=== PATIENT | male | born 1950 | race Caucasian/White ===

== ENCOUNTER 2020-03-29 07:34 | Day surgery (SDC) | payer MEDICARE, MEDICAID ==
[2020-03-22 11:36] LABS: PRE OP PROTIME 10.7 SECONDS (9.0-12.0)
[2020-03-22 11:40] LABS: ALBUMIN 3.9 G/DL (3.4-5.0); ALBUMIN/GLOBULIN RATIO 1.1 (1.1-1.5); ALKALINE PHOSPHATASE 87 IU/L (46-116); BASOPHILS % (AUTO) 0.6 % (0-1); BLOOD UREA NITROGEN 12 MG/DL (7-18); BUN/CREATININE RATIO 12.1 (5.4-32.0); CALCIUM 8.6 MG/DL (8.5-10.1); CHLORIDE 105 MMOL/L (99-107); CREATININE 0.99 MG/DL (0.60-1.10); EOSINOPHILS # (AUTO) 0.1 X10'3 (0-0.9); LYMPHOCYTES # (AUTO) 1.8 X10'3 (1.1-4.8); LYMPHOCYTES % (AUTO) 33.7 % (21-51); MEAN CORPUSCULAR HEMOGLOBIN 34.2 PG (27.0-31.0); MEAN CORPUSCULAR HGB CONC 34.8 g/dL (33.0-36.5); MEAN CORPUSCULAR VOLUME 98.2 FL (78-98); MEAN PLATELET VOLUME 7.9 FL (7.4-10.4); MONOCYTES # (AUTO) 0.5 X10'3 (0-0.9); MONOCYTES % (AUTO) 10.5 % (2-12); NEUTROPHILS # (AUTO) 2.8 X10'3 (1.8-7.7); NEUTROPHILS % (AUTO) 54.2 % (42-75); PRE OP ALT 27 U/L (30-65); PRE OP ANION GAP 8 (8-16); PRE OP AST 18 U/L (10-37); PRE OP BILIRUB, TOTAL 0.6 MG/DL (0.0-1.0); PRE OP GLUCOSE 120 MG/DL (70-104); PRE OP HEMATOCRIT 45.6 % (42.0-52.0); PRE OP HEMOGLOBIN 15.9 g/dL (14.0-17.9); PRE OP PLATELET COUNT 127 X10'3 (140-440); PRE OP SODIUM 140 MMOL/L (135-145); RED BLOOD COUNT 4.65 X10'6 (4.70-6.10); TOTAL CARBON DIOXIDE 27.5 MMOL/L (24-32); TOTAL PROTEIN 7.5 G/DL (6.4-8.2); eGFR 75 ML/MIN
[2020-03-29] VITALS (8 sets, daily range): BP systolic 116–129; BP diastolic 59–78
[~2020-03-29] VITALS: Ht 172.7 cm; Wt 86.0 kg
[~2020-03-29 07:34] MED LIST: ALBU18HF2 IH; BACL10TA2 PO; DIAZ10TA5 PO; DIPH25CA46 PO; DOCUMENT DATE & TIME OF BETA-BLOCKER PO ONE; ESOM40CA54 PO; FLO0.4C PO; FLUT16SP26 BOTHNARES; GABA600T13 PO; ISOS60TA4 PO; LIDOcaine 1% W/epiNEPHrine 1:100,000 20ml vial ONE; LORA10TA7 PO; LOSA25TA41 PO; METO-411 PO; MSC30T PO; NITR0.4T51 SL; OXYC-658 PO; QUET100T33 PO; ROPI1TAB6 PO; SIMV-45 PO; TEST200V10 IM; VALB80CA PO; cefTAZidime 1gm inj ONE; cocaine 4% topical solution 4ml bottle ONE; famotidine 20mg tablet PO ONE; methylPREDNISolone acetate 80mg/ml inj**IM only ONE; mupirocin 2% ointment 22GM ONE; oxymetazoline 15 ML nasal spray NS ONE; ringers solution, lacted 1,000 ML IV SCH
[2020-03-29] MEDS ORDERED: LIDOcaine 1% W/epiNEPHrine 1:100,000 20ml vial ONE (07:35)
[2020-03-29] MEDS ORDERED: ondansetron/PF 4mg/2ml inj IV PRN (09:00)
[2020-03-29] MEDS ORDERED: ringers solution, lacted 1,000 ML IV SCH (09:00)
[2020-03-29] MEDS ORDERED: morphine 4 MG/ML inj SYRINge IV PRN (09:00)
[2020-03-29] MEDS ORDERED: fentaNYL/PF 50MCG/1 ML 2ML syringe IV PRN ×2 (09:00)
[2020-03-29] MEDS ORDERED: labetalol 20mg/4ml (5mg/ml) syringe IV PRN (09:00)
[2020-03-29] MEDS ORDERED: hydrALAZINE 20mg/ml inj. IV PRN (09:00)
[2020-03-29] MEDS ORDERED: morphine 2 MG/ML inj. syringe IV PRN (09:00)
[2020-03-29] MEDS ORDERED: fentaNYL/PF 50MCG/1 ML 2ML syringe ONE (09:29)
[2020-03-29] MEDS ORDERED: midazolam 2 mg/2 ml injection ONE (09:30)
[2020-03-29] MEDS ORDERED: dexamethasone sod phosphate 4mg/ml inj. ONE (09:32)
[2020-03-29] MEDS ORDERED: LIDOcaine 2% (20mg/ml) 5ml vial ONE (09:32)
[2020-03-29] MEDS ORDERED: ondansetron/PF 4mg/2ml inj ONE (09:32)
[2020-03-29] MEDS ORDERED: propofol inj 20 ML IV ONE (09:32)
[2020-03-29] MEDS ORDERED: sevoflurane 250ml liquid IH ONE (10:01)
[2020-03-29] MEDS ORDERED: ePHEDrine 50MG/ML INJ. ONE (10:16)
--- NOTE | 2020-03-29 11:45 | NUR ---
Received from OR via BED , accompanied by Anesthesiologist DR NICHOLS and report given by Anesthesiolgist. PATIENT WAKING UP, DENIES PAIN, V/S WNL, CSM INTACT, 20G PIV TO RUE, COTTONOID PACKING TO RIGHT SINUSE WITH NO ACTIVE DRAINAGE VISABLE AT THIS T
[2020-03-29] MEDS ORDERED: salt irrigation nasal spray 45 ML SPRAY NS PRN (11:55)
--- NOTE | 2020-03-29 12:45 | NUR ---
PATIENT A&OX4, DENIES PAIN, V/S WNL, CSM INTACT, 20G PIV TO RUE D/C, COTTONOID PACKING TO SINUS D/C WITH NO ACTIVE DRAINAGE VISABLE AT THIS TIME. I HAVE REVIEWED D/C INSTRUCTIONS WITH PATIENT AND FAMILY AND THEY HAVE VERBALIZED UNDERSTANDING. PATIENT D/C HOME WITH ALL BELONGINGS AND FAMILY GAVE TRANSPORT HOME.PATIENT OFFERED MASK BUT REFUSED TO WEAR IT AT UPON D/C.
== END 2020-03-29 12:45 | disposition home or self-care (01) ==
LOC: PAS 07:34
PROVIDERS: ATTEND Otolaryngology
DX: J34.2 Deviated nasal septum (principal); J34.3 Hypertrophy of nasal turbinates; J32.8 Other chronic sinusitis; Z20.828 Contact with and (suspected) exposure to other viral communicable diseases; F17.210 Nicotine dependence, cigarettes, uncomplicated; J44.9 Chronic obstructive pulmonary disease, unspecified; I25.10 Atherosclerotic heart disease of native coronary artery without angina pectoris; Z95.5 Presence of coronary angioplasty implant and graft; K21.9 Gastro-esophageal reflux disease without esophagitis; E11.9 Type 2 diabetes mellitus without complications; I25.2 Old myocardial infarction; G89.29 Other chronic pain; Z90.49 Acquired absence of other specified parts of digestive tract; Z98.890 Other specified postprocedural states; Z89.511 Acquired absence of right leg below knee; Z88.8 Allergy status to other drugs, medicaments and biological substances; Z79.899 Other long term (current) drug therapy; Z79.01 Long term (current) use of anticoagulants
CPT/HCPCS: 30140; 30520; 31253; 31267; 36415; 61782; 80053; 82948; 85025; 85576; 85610; 85730; 87635; A6402; C9250; C9803; J0713; J1040; J1100; J2001; J2250; J2405; J2704; J3010; J7040; A4618; A7000; J7120

== ENCOUNTER 2020-09-30 10:06 | Emergency (ER) | payer MEDICARE, MEDICAID ==
[~2020-09-30] VITALS: Ht 172.7 cm; Wt 88.6 kg
[~2020-09-30 10:06] MED LIST changes: +DIPH-1055 PO; -DIPH25CA46 PO; -DOCUMENT DATE & TIME OF BETA-BLOCKER PO ONE; -ISOS60TA4 PO; +ISOS60TA71 PO; -LIDOcaine 1% W/epiNEPHrine 1:100,000 20ml vial ONE; -cefTAZidime 1gm inj ONE; -cocaine 4% topical solution 4ml bottle ONE; -famotidine 20mg tablet PO ONE; -methylPREDNISolone acetate 80mg/ml inj**IM only ONE; -mupirocin 2% ointment 22GM ONE; -oxymetazoline 15 ML nasal spray NS ONE; -ringers solution, lacted 1,000 ML IV SCH
--- NOTE | 2020-09-30 10:27 | NUR ---
RELIEVING RN FOR BREAK, PT IS RESTING QUIETLY ON GURNEY, RESP EVEN, UNLABORED, SHALLOW, SKIN IS PALE, SLIGHTLY DIAPHORETIC, WARM, ON NASAL CANNULA 3LITERS 02, PULSE OX 95%, PT AROUSES TO LOUD VOICE, ORIENTED TO PERSON ONLY, "WHERE AM I?", THEN FALLS BACK ASLEEP IN BETWEEN QUESTIONS, HAS PILL BOTTLE FILLED 09/29/20 MORPHINE ER 30MG 60 TABS, 6 PURPLE PILLS ARE LEFT, MORPHABOND ER 15MG FILLED 09/09/19 60 TABS, ONE PILL LEFT, UNK HOW MUCH PT TOOK
--- NOTE | 2020-09-30 10:38 | NUR ---
THERE IS ALSO ONE WHITE PILL WITH "U22" ON IT, OXYCODONE 5MG, IN PILL BOTTLE
[2020-09-30 10:59] LABS: BASOPHILS % (AUTO) 0.8 % (0-1); EOSINOPHILS % (AUTO) 0.1 % (0-6); HEMATOCRIT 40.2 % (42.0-52.0); HEMOGLOBIN 14.1 g/dl (14.0-17.9); LYMPHOCYTES % (AUTO) 17.9 % (21-51); MEAN CORPUSCULAR HEMOGLOBIN 33.7 PG (27.0-31.0); MEAN CORPUSCULAR HGB CONC 34.9 g/dL (33.0-36.5); MEAN CORPUSCULAR VOLUME 96.4 FL (78-98); MEAN PLATELET VOLUME 7.8 FL (7.4-10.4); MONOCYTES # (AUTO) 0.5 X10'3 (0-0.9); MONOCYTES % (AUTO) 9.4 % (2-12); NEUTROPHILS # (AUTO) 3.8 X10'3 (1.8-7.7); NEUTROPHILS % (AUTO) 71.8 % (42-75); PLATELET COUNT 121 X10'3 (140-440); RED BLOOD COUNT 4.17 X10'6 (4.70-6.10); RED CELL DISTRIBUTION WIDTH 14.6 % (11.5-14.5); WHITE BLOOD COUNT 5.3 X10'3 (4.5-11.0)
[2020-09-30] MEDS ORDERED: normal saline 1000ML IV soln IVB ONE ×2 (11:00→11:40)
--- NOTE | 2020-09-30 11:05 | NUR ---
Spoke to poison control who recommends tylenol, aspiration blood levels, chem panel, EKG, Narcan, observe for 4 hours after Narcan for respiratory depression and renarcan if needed. 6 hrs minumun observation.
[2020-09-30 11:13] LABS: ALANINE AMINOTRANSFERASE 18 U/L (12-78); ALBUMIN 3.3 G/DL (3.4-5.0); ALBUMIN/GLOBULIN RATIO 0.9 (1.1-1.5); ALKALINE PHOSPHATASE 70 IU/L (46-116); ANION GAP 6 (8-16); ASPARTATE AMINO TRANSFERASE 19 U/L (10-37); BILIRUBIN,TOTAL 0.6 MG/DL (0.1-1.0); BLOOD UREA NITROGEN 18 MG/DL (7-18); BUN/CREATININE RATIO 14.8 (5.4-32.0); CALCIUM 7.9 MG/DL (8.5-10.1); CHLORIDE 104 MMOL/L (99-107); CREATININE 1.22 MG/DL (0.60-1.10); GLUCOSE 133 MG/DL (70-104); POTASSIUM 4.2 MMOL/L (3.5-5.1); SODIUM 137 MMOL/L (135-145); TOTAL PROTEIN 6.8 G/DL (6.4-8.2); eGFR 59 ML/MIN
[2020-09-30 11:58] LABS: URINE AMPHETAMINE SCREEN NEGATIVE (Neg); URINE BARBITUATE SCREEN NEGATIVE (Neg); URINE BENZODIAZEPINES SCREEN POSITIVE (Neg); URINE CANNABINOID SCREEN NEGATIVE (Neg); URINE COCAINE SCREEN NEGATIVE (Neg); URINE METHADONE SCREEN NEGATIVE (Neg); URINE OPIATE SCREEN POSITIVE (Neg); URINE PHENCYCLIDINE SCREEN NEGATIVE (Neg)
[2020-09-30 13:41] VITALS: BP 97/79
--- NOTE | 2020-09-30 14:47 | NUR ---
DISCHARGED BY VERNON DOWLING
== END 2020-09-30 16:04 | disposition home or self-care (01) ==
LOC: ER 10:07
DX: T40.2X1A Poisoning by other opioids, accidental (unintentional), initial encounter (principal); M54.5 Low back pain; I25.10 Atherosclerotic heart disease of native coronary artery without angina pectoris; R41.82 Altered mental status, unspecified; E78.00 Pure hypercholesterolemia, unspecified; J44.9 Chronic obstructive pulmonary disease, unspecified; K21.9 Gastro-esophageal reflux disease without esophagitis; E11.9 Type 2 diabetes mellitus without complications; G89.29 Other chronic pain; F17.200 Nicotine dependence, unspecified, uncomplicated; Z98.890 Other specified postprocedural states; Z88.8 Allergy status to other drugs, medicaments and biological substances; Z79.899 Other long term (current) drug therapy; Y92.89 Other specified places as the place of occurrence of the external cause
CPT/HCPCS: 36415; 80053; 80305; 85025; 93005; 96360; 96361; 99285; J7030

== ENCOUNTER 2020-10-26 09:38 | Day surgery (SDC) | payer MEDICARE, MEDICAID ==
[~2020-10-26] VITALS: Ht 172.7 cm; Wt 85.9 kg
[2020-10-26 09:55] VITALS: BP 86/55
[2020-10-26] MEDS ORDERED: fentaNYL/PF 50MCG/1 ML 2ML syringe ONE (10:17)
[2020-10-26] MEDS ORDERED: MIDAZolam 1 MG/ML 5ML VIAL ONE (10:17)
[2020-10-26] MEDS ORDERED: LIDOcaine Viscous 15ml cup ONE (10:45)
[2020-10-26 11:27] VITALS: BP 104/71
[2020-10-26 11:37] VITALS: BP 125/84
[2020-10-26 11:47] VITALS: BP 108/68
[2020-10-26 11:57] VITALS: BP 122/74
== END 2020-10-26 12:08 | disposition home or self-care (01) ==
LOC: GI LAB 09:38
PROVIDERS: ATTEND Internal Medicine Gastroenterology
DX: R10.9 Unspecified abdominal pain (principal); R13.10 Dysphagia, unspecified; R12 Heartburn; D12.0 Benign neoplasm of cecum; K44.9 Diaphragmatic hernia without obstruction or gangrene; K22.8 Other specified diseases of esophagus; K29.50 Unspecified chronic gastritis without bleeding; K20.80 Other esophagitis without bleeding; J44.9 Chronic obstructive pulmonary disease, unspecified; I10 Essential (primary) hypertension; Z86.010 Personal history of colon polyps; Z87.891 Personal history of nicotine dependence; Z72.89 Other problems related to lifestyle; Z88.8 Allergy status to other drugs, medicaments and biological substances; Z79.899 Other long term (current) drug therapy; Z79.891 Long term (current) use of opiate analgesic
CPT/HCPCS: 43239; 43450; 45385; 88305; 99153; C1773; G0500; J2250; J3010; J7040; 99152; A4620

== ENCOUNTER 2021-09-25 16:15 | Emergency (ER) | payer MEDICARE, MEDICAID ==
[~2021-09-25] VITALS: Ht 172.7 cm; Wt 88.6 kg
[~2021-09-25 16:15] MED LIST changes: -QUET100T33 PO; +QUET100T34 PO; -TEST200V10 IM; +TEST200V33 IM
[2021-09-25 17:04] LABS: BASOPHILS # (AUTO) 0.1 X10'3 (0-0.2); BASOPHILS % (AUTO) 0.7 % (0-1); EOSINOPHILS # (AUTO) 0.1 X10'3 (0-0.9); EOSINOPHILS % (AUTO) 1.1 % (0-6); HEMATOCRIT 37.1 % (42.0-52.0); HEMOGLOBIN 12.9 g/dl (14.0-17.9); LYMPHOCYTES # (AUTO) 1.5 X10'3 (1.1-4.8); LYMPHOCYTES % (AUTO) 18.6 % (21-51); MEAN CORPUSCULAR HEMOGLOBIN 32.2 PG (27.0-31.0); MEAN CORPUSCULAR HGB CONC 34.8 g/dL (33.0-36.5); MEAN CORPUSCULAR VOLUME 92.3 FL (78-98); MEAN PLATELET VOLUME 7.7 FL (7.4-10.4); MONOCYTES # (AUTO) 0.7 X10'3 (0-0.9); MONOCYTES % (AUTO) 8.2 % (2-12); NEUTROPHILS # (AUTO) 5.9 X10'3 (1.8-7.7); NEUTROPHILS % (AUTO) 71.4 % (42-75); PLATELET COUNT 198 X10'3 (140-440); RED BLOOD COUNT 4.02 X10'6 (4.70-6.10); RED CELL DISTRIBUTION WIDTH 13.7 % (11.5-14.5); WHITE BLOOD COUNT 8.2 X10'3 (4.5-11.0)
[2021-09-25 17:14] LABS: ALANINE AMINOTRANSFERASE 23 U/L (12-78); ALBUMIN 2.9 G/DL (3.4-5.0); ALBUMIN/GLOBULIN RATIO 0.7 (1.1-1.5); ALKALINE PHOSPHATASE 120 IU/L (46-116); ANION GAP 7 (8-16); ASPARTATE AMINO TRANSFERASE 16 U/L (10-37); BILIRUBIN,TOTAL 0.4 MG/DL (0.1-1.0); BLOOD UREA NITROGEN 10 MG/DL (7-18); BUN/CREATININE RATIO 9.3 (5.4-32.0); CALCIUM 9.2 MG/DL (8.5-10.1); CHLORIDE 103 MMOL/L (99-107); CREATININE 1.08 MG/DL (0.60-1.10); GLUCOSE 261 MG/DL (70-104); POTASSIUM 4.4 MMOL/L (3.5-5.1); SODIUM 140 MMOL/L (135-145); TOTAL CARBON DIOXIDE 30.4 MMOL/L (24-32); TOTAL PROTEIN 6.9 G/DL (6.4-8.2); eGFR 67 ML/MIN
[2021-09-25] MEDS ORDERED: azithromycin 250mg tablet PO ONE (23:35)
[2021-09-26] MEDS ORDERED: AZIT250T2 PO (00:27)
[2021-09-26 01:48] VITALS: BP 119/66
== END 2021-09-26 01:49 | disposition home or self-care (01) ==
LOC: ER 16:15
DX: R07.89 Other chest pain (principal); J18.9 Pneumonia, unspecified organism; R05.9 Cough, unspecified; I25.10 Atherosclerotic heart disease of native coronary artery without angina pectoris; E78.00 Pure hypercholesterolemia, unspecified; J44.9 Chronic obstructive pulmonary disease, unspecified; K21.9 Gastro-esophageal reflux disease without esophagitis; E11.9 Type 2 diabetes mellitus without complications; G89.29 Other chronic pain; F17.200 Nicotine dependence, unspecified, uncomplicated; Z90.49 Acquired absence of other specified parts of digestive tract; Z98.890 Other specified postprocedural states; Z88.8 Allergy status to other drugs, medicaments and biological substances; Z79.2 Long term (current) use of antibiotics; Z79.899 Other long term (current) drug therapy
CPT/HCPCS: 36415; 71045; 80053; 83605; 83880; 84145; 84484; 85025; 87040; 93005; 99285

== ENCOUNTER 2021-10-05 18:12 | Emergency (ER) | payer MEDICARE, MEDICAID ==
[~2021-10-05] VITALS: Ht 172.7 cm; Wt 81.8 kg
[2021-10-05 19:03] LABS: BASOPHILS % (AUTO) 0.6 % (0-1); EOSINOPHILS % (AUTO) 0.2 % (0-6); HEMOGLOBIN 12.8 g/dl (14.0-17.9); LYMPHOCYTES # (AUTO) 1.3 X10'3 (1.1-4.8); LYMPHOCYTES % (AUTO) 19.3 % (21-51); MEAN CORPUSCULAR HEMOGLOBIN 32.2 PG (27.0-31.0); MEAN CORPUSCULAR HGB CONC 34.7 g/dL (33.0-36.5); MEAN CORPUSCULAR VOLUME 92.8 FL (78-98); MONOCYTES # (AUTO) 0.4 X10'3 (0-0.9); MONOCYTES % (AUTO) 5.3 % (2-12); NEUTROPHILS # (AUTO) 5.2 X10'3 (1.8-7.7); NEUTROPHILS % (AUTO) 74.6 % (42-75); PLATELET COUNT 206 X10'3 (140-440); RED BLOOD COUNT 3.99 X10'6 (4.70-6.10); RED CELL DISTRIBUTION WIDTH 15.4 % (11.5-14.5)
[2021-10-05 19:06] LABS: ALANINE AMINOTRANSFERASE 21 U/L (12-78); ALBUMIN 3.1 G/DL (3.4-5.0); ALBUMIN/GLOBULIN RATIO 0.8 (1.1-1.5); ALKALINE PHOSPHATASE 105 IU/L (46-116); ANION GAP 10 (8-16); ASPARTATE AMINO TRANSFERASE 14 U/L (10-37); BILIRUBIN,TOTAL 0.4 MG/DL (0.1-1.0); BLOOD UREA NITROGEN 16 MG/DL (7-18); CALCIUM 9.2 MG/DL (8.5-10.1); CHLORIDE 105 MMOL/L (99-107); CREATININE 1.14 MG/DL (0.60-1.10); GLUCOSE 334 MG/DL (70-104); SODIUM 140 MMOL/L (135-145); TOTAL CARBON DIOXIDE 25.5 MMOL/L (24-32); eGFR 63 ML/MIN
[2021-10-05] MEDS ORDERED: iohexol 350MG/ML 100ml bottle IV ONE (19:43)
[2021-10-05] MEDS ORDERED: methylPREDNISolone sod succ 125mg/2ml vial IV ONE (20:55)
[2021-10-05] MEDS ORDERED: albuterol 2.5 MG/3 ML nebule NEB ONE (20:55)
[2021-10-05] MEDS ORDERED: ipratropium/albuterol 3ml nebule NEB ONE (20:55)
[2021-10-05] MEDS ORDERED: [UNRECOGNIZED DRUG - CODE] INH (21:25)
[2021-10-05] MEDS ORDERED: ALBU2.5V13 NEB (21:25)
[2021-10-05 21:48] VITALS: BP 127/64
== END 2021-10-05 21:51 | disposition home or self-care (01) ==
LOC: ER 18:16
DX: J44.1 Chronic obstructive pulmonary disease with (acute) exacerbation (principal); D64.9 Anemia, unspecified; R06.02 Shortness of breath; I25.10 Atherosclerotic heart disease of native coronary artery without angina pectoris; E78.00 Pure hypercholesterolemia, unspecified; J44.9 Chronic obstructive pulmonary disease, unspecified; K21.9 Gastro-esophageal reflux disease without esophagitis; E11.9 Type 2 diabetes mellitus without complications; G89.29 Other chronic pain; Z90.49 Acquired absence of other specified parts of digestive tract; Z98.890 Other specified postprocedural states; Z88.8 Allergy status to other drugs, medicaments and biological substances; Z79.899 Other long term (current) drug therapy
CPT/HCPCS: 36415; 71045; 71275; 80053; 83880; 84484; 85025; 93005; 94640; 96374; 99285; J2930; J3490; Q9967

== ENCOUNTER 2022-04-11 07:33 | Day surgery (SDC) | payer MEDICARE, MEDICAID ==
[~2022-04-11] VITALS: Ht 172.7 cm; Wt 81.8 kg
[~2022-04-11 07:33] MED LIST changes: +ATRNS BOTHNARES; -DIAZ10TA5 PO; +IPRA3AMP31 NEB; +METF-1203 PO; +METO50TA16 PO; +POLY510P31 PO; +PREG150C46 PO; -QUET100T34 PO; +QUET200T31 PO; +SEMA0.25 SQ; +TEMA15CA5 PO; +[UNRECOGNIZED DRUG - CODE] INH
[2022-04-11 08:04] VITALS: BP 94/52
[2022-04-11] MEDS ORDERED: DULO20CA50 PO (08:21)
[2022-04-11] MEDS ORDERED: TRULICITY (08:21)
[2022-04-11] MEDS ORDERED: ASPI-1264 PO (08:21)
[2022-04-11 10:10] VITALS: BP 101/64
[2022-04-11 10:27] VITALS: BP 112/52
[2022-04-11 10:40] VITALS: BP 101/64
== END 2022-04-11 11:15 | disposition home or self-care (01) ==
LOC: SSTAY O 07:33
PROVIDERS: ATTEND Radiology Vascular & Interventional Radiology
DX: C34.90 Malignant neoplasm of unspecified part of unspecified bronchus or lung (principal); I10 Essential (primary) hypertension; E11.9 Type 2 diabetes mellitus without complications; Z82.49 Family history of ischemic heart disease and other diseases of the circulatory system; Z90.49 Acquired absence of other specified parts of digestive tract; Z79.899 Other long term (current) drug therapy; Z89.511 Acquired absence of right leg below knee
CPT/HCPCS: 36561; 76937; 77001; 99152; C1788; C1894; J7030; 99153

== ENCOUNTER 2022-07-16 19:36 | Emergency (ER) | payer MEDICARE, MEDICAID ==
[~2022-07-16] VITALS: Ht 172.7 cm; Wt 79.0 kg
[~2022-07-16 19:36] MED LIST changes: -ALBU18HF2 IH; +ASPI-1264 PO; -ATRNS BOTHNARES; -DIPH-1055 PO; +DULO20CA50 PO; -FLUT16SP26 BOTHNARES; -GABA600T13 PO; -IPRA3AMP31 NEB; -ISOS60TA71 PO; +LEVO750T68 PO; +LOP25T PO; -LOSA25TA41 PO; -METF-1203 PO; -METO-411 PO; -METO50TA16 PO; -NITR0.4T51 SL; -POLY510P31 PO; -SEMA0.25 SQ; -TEMA15CA5 PO; -TEST200V33 IM; +TRULICITY SUBCUT; -[UNRECOGNIZED DRUG - CODE] INH
[2022-07-16 19:59] LABS: BASOPHILS % (AUTO) 0.9 % (0-1); EOSINOPHILS % (AUTO) 1.3 % (0-6); HEMATOCRIT 24.3 % (42.0-52.0); HEMOGLOBIN 8.1 g/dl (14.0-17.9); LYMPHOCYTES # (AUTO) 0.4 X10'3 (1.1-4.8); LYMPHOCYTES % (AUTO) 9.2 % (21-51); MEAN CORPUSCULAR HEMOGLOBIN 32.7 PG (27.0-31.0); MEAN CORPUSCULAR HGB CONC 33.4 g/dL (33.0-36.5); MEAN CORPUSCULAR VOLUME 97.9 FL (78-98); MEAN PLATELET VOLUME 7.6 FL (7.4-10.4); MONOCYTES # (AUTO) 0.6 X10'3 (0-0.9); MONOCYTES % (AUTO) 15.2 % (2-12); NEUTROPHILS # (AUTO) 2.8 X10'3 (1.8-7.7); NEUTROPHILS % (AUTO) 73.4 % (42-75); PLATELET COUNT 122 X10'3 (140-440); RED BLOOD COUNT 2.48 X10'6 (4.70-6.10); RED CELL DISTRIBUTION WIDTH 21.2 % (11.5-14.5); WHITE BLOOD COUNT 3.8 X10'3 (4.5-11.0)
[2022-07-16 20:14] LABS: ALANINE AMINOTRANSFERASE 16 U/L (12-78); ALBUMIN 2.9 G/DL (3.4-5.0); ALBUMIN/GLOBULIN RATIO 0.8 (1.1-1.5); ALKALINE PHOSPHATASE 84 IU/L (46-116); ANION GAP 8 (8-16); ASPARTATE AMINO TRANSFERASE 12 U/L (10-37); BILIRUBIN,TOTAL 0.5 MG/DL (0.1-1.0); BLOOD UREA NITROGEN 12 MG/DL (7-18); BUN/CREATININE RATIO 14.3 (10.0-20.0); CALCIUM 8.7 MG/DL (8.5-10.1); CHLORIDE 107 MMOL/L (99-107); CREATININE 0.84 MG/DL (0.60-1.10); GLUCOSE 110 MG/DL (70-104); SODIUM 143 MMOL/L (135-145); TOTAL PROTEIN 6.4 G/DL (6.4-8.2); eGFR 90 ML/MIN
[2022-07-16] MEDS ORDERED: ipratropium/albuterol 3ml nebule NEB ONE (20:20)
[2022-07-16 20:23] VITALS: BP 103/59
[2022-07-16 20:29] LABS: ANISOCYTOSIS 3+; PLATELET ESTIMATE DECREASED
[2022-07-16 20:31] LABS: POLYCHROMASIA FEW
[2022-07-16] MEDS ORDERED: HYDROcodone/acetaminophen 10/325mg tab PO ONE (21:30)
== END 2022-07-16 21:44 | disposition home or self-care (01) ==
LOC: ER 19:37
DX: I11.0 Hypertensive heart disease with heart failure (principal); J44.9 Chronic obstructive pulmonary disease, unspecified; E11.9 Type 2 diabetes mellitus without complications; D64.9 Anemia, unspecified; Z90.49 Acquired absence of other specified parts of digestive tract; Z88.5 Allergy status to narcotic agent; Z79.899 Other long term (current) drug therapy; Z79.1 Long term (current) use of non-steroidal anti-inflammatories (NSAID); Z79.2 Long term (current) use of antibiotics; Z79.82 Long term (current) use of aspirin
CPT/HCPCS: 36415; 71045; 80053; 83880; 84484; 85008; 85025; 93005; 94640; 94760; 99285

== ENCOUNTER 2022-09-11 21:05 | Emergency (ER) | payer MEDICARE, MEDICAID ==
[~2022-09-11] VITALS: Ht 172.7 cm; Wt 79.5 kg
[~2022-09-11 21:05] MED LIST changes: +DULA0.75 SQ; -LEVO750T68 PO; -LOP25T PO; -TRULICITY SUBCUT
[2022-09-11] MEDS ORDERED: methylPREDNISolone sod succ 125mg/2ml vial IV ONE (21:30)
[2022-09-11 21:55] LABS: BASOPHILS # (AUTO) 0.1 X10'3 (0-0.2); BASOPHILS % (AUTO) 1.1 % (0-1); EOSINOPHILS # (AUTO) 0.1 X10'3 (0-0.9); EOSINOPHILS % (AUTO) 2.1 % (0-6); HEMOGLOBIN 10.8 g/dl (14.0-17.9); LYMPHOCYTES # (AUTO) 0.4 X10'3 (1.1-4.8); LYMPHOCYTES % (AUTO) 7.7 % (21-51); MEAN CORPUSCULAR HEMOGLOBIN 31.6 PG (27.0-31.0); MEAN CORPUSCULAR HGB CONC 33.9 g/dL (33.0-36.5); MEAN CORPUSCULAR VOLUME 93.4 FL (78-98); MEAN PLATELET VOLUME 7.4 FL (7.4-10.4); MONOCYTES # (AUTO) 0.5 X10'3 (0-0.9); MONOCYTES % (AUTO) 10.4 % (2-12); NEUTROPHILS # (AUTO) 3.9 X10'3 (1.8-7.7); NEUTROPHILS % (AUTO) 78.7 % (42-75); PLATELET COUNT 137 X10'3 (140-440); RED BLOOD COUNT 3.43 X10'6 (4.70-6.10); RED CELL DISTRIBUTION WIDTH 17.6 % (11.5-14.5)
--- NOTE | 2022-09-11 22:00 | NUR ---
ivp given by storage battery charger
[2022-09-11] MEDS ORDERED: ipratropium/albuterol 3ml nebule NEB ONE (22:05)
[2022-09-11 22:11] LABS: ALANINE AMINOTRANSFERASE 14 U/L (12-78); ALBUMIN 3.1 G/DL (3.4-5.0); ALKALINE PHOSPHATASE 80 IU/L (46-116); ANION GAP 9 (8-16); ASPARTATE AMINO TRANSFERASE 15 U/L (10-37); BILIRUBIN,TOTAL 0.5 MG/DL (0.1-1.0); BLOOD UREA NITROGEN 11 MG/DL (7-18); BUN/CREATININE RATIO 12.4 (10.0-20.0); CALCIUM 8.4 MG/DL (8.5-10.1); CHLORIDE 103 MMOL/L (99-107); CREATININE 0.89 MG/DL (0.60-1.10); GLUCOSE 146 MG/DL (70-104); POTASSIUM 3.5 MMOL/L (3.5-5.1); SODIUM 136 MMOL/L (135-145); TOTAL CARBON DIOXIDE 24.2 MMOL/L (24-32); TOTAL PROTEIN 6.3 G/DL (6.4-8.2); eGFR 84 ML/MIN
[2022-09-11] MEDS ORDERED: PRED20TA PO (22:38)
[2022-09-11 22:40] VITALS: BP 115/63
--- NOTE | 2022-09-11 23:38 | NUR ---
IV DC'D PT BEING DISCHARGED DRESSING APPLIED
== END 2022-09-11 23:52 | disposition home or self-care (01) ==
LOC: ER 21:06
DX: J44.1 Chronic obstructive pulmonary disease with (acute) exacerbation (principal); R33.9 Retention of urine, unspecified; I11.9 Hypertensive heart disease without heart failure; E11.9 Type 2 diabetes mellitus without complications; Z86.2 Personal history of diseases of the blood and blood-forming organs and certain disorders involving the immune mechanism; Z88.8 Allergy status to other drugs, medicaments and biological substances; Z79.899 Other long term (current) drug therapy; Z79.82 Long term (current) use of aspirin
CPT/HCPCS: 71045; 80053; 83880; 84484; 85025; 93005; 94640; 96374; 99285; J2930; A4358

== ENCOUNTER 2022-10-19 12:48 | Inpatient (IN) | payer MEDICARE, MEDICAID ==
[~2022-10-19] VITALS: Ht 172.7 cm; Wt 86.0 kg
[~2022-10-19 12:48] MED LIST changes: +ROPI1TAB47 PO; -ROPI1TAB6 PO
[2022-10-19 13:22] LABS: BASOPHILS % (AUTO) 0.3 % (0-1); EOSINOPHILS % (AUTO) 0.2 % (0-6); HEMATOCRIT 31.3 % (42.0-52.0); HEMOGLOBIN 10.2 g/dl (14.0-17.9); LYMPHOCYTES # (AUTO) 0.1 X10'3 (1.1-4.8); LYMPHOCYTES % (AUTO) 2.7 % (21-51); MEAN CORPUSCULAR HEMOGLOBIN 30.1 PG (27.0-31.0); MEAN CORPUSCULAR HGB CONC 32.6 g/dL (33.0-36.5); MEAN CORPUSCULAR VOLUME 92.4 FL (78-98); MONOCYTES # (AUTO) 0.6 X10'3 (0-0.9); NEUTROPHILS # (AUTO) 3.9 X10'3 (1.8-7.7); NEUTROPHILS % (AUTO) 83.8 % (42-75); PLATELET COUNT 102 X10'3 (140-440); RED BLOOD COUNT 3.38 X10'6 (4.70-6.10); RED CELL DISTRIBUTION WIDTH 18.6 % (11.5-14.5); WHITE BLOOD COUNT 4.6 X10'3 (4.5-11.0)
[2022-10-19 13:31] LABS: ALANINE AMINOTRANSFERASE 26 U/L (12-78); ALBUMIN 2.2 G/DL (3.4-5.0); ALBUMIN/GLOBULIN RATIO 0.8 (1.1-1.5); ALKALINE PHOSPHATASE 77 IU/L (46-116); ANION GAP 8 (8-16); ASPARTATE AMINO TRANSFERASE 7 U/L (10-37); BILIRUBIN,TOTAL 0.2 MG/DL (0.1-1.0); BLOOD UREA NITROGEN 16 MG/DL (7-18); BUN/CREATININE RATIO 13.6 (10.0-20.0); CALCIUM 8.1 MG/DL (8.5-10.1); CHLORIDE 106 MMOL/L (99-107); CREATININE 1.18 MG/DL (0.60-1.10); GLUCOSE 232 MG/DL (70-104); MAGNESIUM 1.6 MG/DL (1.5-2.4); POTASSIUM 3.2 MMOL/L (3.5-5.1); SODIUM 141 MMOL/L (135-145); TOTAL CARBON DIOXIDE 26.9 MMOL/L (24-32); TOTAL PROTEIN 4.9 G/DL (6.4-8.2); eGFR 61 ML/MIN
[2022-10-19 14:04] LABS: ANISOCYTOSIS 2+; ELLIPTOCYTES FEW; PLATELET ESTIMATE DECREASED; POLYCHROMASIA FEW
[2022-10-19] MEDS ORDERED: iohexol 350MG/ML 100ml bottle IV ONE (14:24)
[2022-10-19] MEDS ORDERED: normal saline 1000ML IV soln IVB ONE ×2 (15:35→17:00)
[2022-10-19 16:59] LABS: CLARITY,URINE SLIGHTLY CLOUDY (Clear); COLOR,URINE YELLOW (Yellow); GLUCOSE, URINE NEGATIVE (Neg); KETONES,URINE NEGATIVE (Neg); LEUKOCYTE ESTERASE ,URINE SMALL (Neg); NITRITES, URINE POSITIVE (Neg); OCCULT BLOOD,URINE SMALL (Neg); PH,URINE 5.5 (4.8-8.0); PROTEIN,URINE NEGATIVE (Neg); UROBILINOGEN,URINE 0.2 E.U/dL (0.2-1.0)
[2022-10-19 17:00] LABS: UA COLLECTION TYPE STRAIGHT CATH
[2022-10-19 17:04] LABS: BACTERIA,URINE 2+ /HPF (Neg); MUCUS STRANDS NONE SEEN /LPF (Neg); SQUAMOUS EPITHELIAL CELL,UR NONE SEEN /LPF (FEW); WBC CLUMPS,URINE FEW /HPF (NEGATIVE); WBC,URINE TNTC /HPF (0-4)
[2022-10-19] MEDS ORDERED: naloxone 0.4 mg/ml inj IV ONE (17:05)
[2022-10-19 17:17] LABS: URINE AMPHETAMINE SCREEN NEGATIVE (Neg); URINE BARBITUATE SCREEN NEGATIVE (Neg); URINE BENZODIAZEPINES SCREEN NEGATIVE (Neg); URINE CANNABINOID SCREEN NEGATIVE (Neg); URINE COCAINE SCREEN NEGATIVE (Neg); URINE METHADONE SCREEN NEGATIVE (Neg); URINE OPIATE SCREEN POSITIVE (Neg); URINE PHENCYCLIDINE SCREEN NEGATIVE (Neg)
[2022-10-19] MEDS ORDERED: potassium Cl 40MEQ/1/2NS 520ml 520 ML IV PRN (17:40)
[2022-10-19] MEDS ORDERED: acetaminophen 325mg tablet PO PRN (17:40)
[2022-10-19] MEDS ORDERED: magnesium Cl slow-release 64mg tablet PO PRN (17:40)
[2022-10-19] MEDS ORDERED: ondansetron/PF 4mg/2ml inj IV PRN (17:40)
[2022-10-19] MEDS ORDERED: magnesium 2GM in 50ml NS 50 ML IV PRN (17:40)
[2022-10-19] MEDS ORDERED: magnesium 4gm in 100ml NS 100 ML IV PRN (17:40)
[2022-10-19] MEDS ORDERED: potassium Cl 20 mEq SR tablet PO PRN (17:40)
[2022-10-19] MEDS ORDERED: magnesium hydroxide 30ml (MOM) UD suspension PO PRN (17:40)
[2022-10-19] MEDS ORDERED: naloxone 0.4 mg/ml inj IV PRN (17:40)
[2022-10-19] MEDS ORDERED: ipratropium/albuterol 3ml nebule NEB PRN (18:00)
[2022-10-19] MEDS ORDERED: DEXTROSE 15 GM of carb/4 tabs (each vial/BOTTLE has 4 tablets) PO PRN ×2 (18:00)
[2022-10-19] MEDS ORDERED: glucagon, human recombinant 1mg kit SUBCUT PRN (18:00)
[2022-10-19] MEDS ORDERED: methylPREDNISolone sod succ 125mg/2ml vial IV ONE (18:00)
[2022-10-19] MEDS ORDERED: dextrose 50%-water 50ml dispensing syringe IV PRN ×2 (18:00)
[2022-10-19] MEDS: piperacillin/tazo 3.375gm/50ml 50 ML IV SCH (18:14)
--- NOTE | 2022-10-19 18:34 | NUR ---
ASSUMED CARE FROM ALCON SCRUGGS
[2022-10-19] MEDS: ipratropium/albuterol 3ml nebule NEB SCH ×2 (18:40→22:22)
--- NOTE | 2022-10-19 18:43 | NUR ---
PT REFUSED BREATHING TREATMENT. PT IS UNDER THE IMPRESSION HE WILL BE D/C HOME. VERNON DOWLING NOTIFIED OF PT CONFUSION WITH TREATMENT PLAN AND ADMISSION.
--- NOTE | 2022-10-19 18:51 | NUR ---
VERNON DOWLING AT BEDSIDE
[2022-10-19] MEDS: normal saline 1000ml 1,000 ML IV SCH (19:25)
[2022-10-19] MEDS: docusate sod 100mg capsule PO SCH (21:57)
[2022-10-19] MEDS: potassium Cl 20 mEq SR tablet PO PRN (21:58)
[2022-10-19] MEDS: K and/or MAG REPLACEMENT MC SCH (21:58)
[2022-10-19 22:00] VITALS: BP 148/85
[2022-10-19] MEDS: insulin glargine (Lantus) pen - multi-dose SQ SCH (22:13)
--- NOTE | 2022-10-19 22:29 | NUR ---
attempted to call report, rn busy with another pt. will call back in min
[2022-10-20] MEDS: methylPREDNISolone sod succ/PF 40mg inj. IV SCH ×3 (00:58→16:04)
[2022-10-20] MEDS: piperacillin/tazo 3.375gm/50ml 50 ML IV SCH ×3 (01:49→16:04)
[2022-10-20] MEDS: ipratropium/albuterol 3ml nebule NEB SCH ×4 (02:44→20:27)
--- NOTE | 2022-10-20 05:38 | NUR ---
PAGER ID: [phone] MESSAGE: [phone] Raymond Ludwig has Gram - rods aerobic bottle. on Zosyn. Carolyn [email or web address] Addendum: 10/20/22 at 0539 by Carolyn Mendez RN Amended: Links added.
[2022-10-20] MEDS: normal saline 1000ml 1,000 ML IV SCH ×3 (05:43→19:49)
[2022-10-20 06:00] VITALS: BP 121/70
--- NOTE | 2022-10-20 06:34 | NUR ---
Problems reprioritized. Patient report given, questions answered & plan of care reviewed with Jeane RONDON. Addendum: 10/20/22 at 0634 by Carolyn Mendez RN Amended: Links added.
[2022-10-20 06:36] LABS: BASOPHILS % (AUTO) 0.4 % (0-1); EOSINOPHILS % (AUTO) 0 % (0-6); HEMATOCRIT 33.3 % (42.0-52.0); HEMOGLOBIN 10.9 g/dl (14.0-17.9); LYMPHOCYTES # (AUTO) 0.1 X10'3 (1.1-4.8); LYMPHOCYTES % (AUTO) 1.2 % (21-51); MEAN CORPUSCULAR HEMOGLOBIN 29.7 PG (27.0-31.0); MEAN CORPUSCULAR HGB CONC 32.8 g/dL (33.0-36.5); MEAN CORPUSCULAR VOLUME 90.7 FL (78-98); MEAN PLATELET VOLUME 7.8 FL (7.4-10.4); MONOCYTES # (AUTO) 0.3 X10'3 (0-0.9); MONOCYTES % (AUTO) 5.4 % (2-12); PLATELET COUNT 94 X10'3 (140-440); RED BLOOD COUNT 3.67 X10'6 (4.70-6.10); RED CELL DISTRIBUTION WIDTH 17.8 % (11.5-14.5); WHITE BLOOD COUNT 5.4 X10'3 (4.5-11.0)
--- NOTE | 2022-10-20 06:50 | NUR ---
Patient in room ORTHO 4018. I have received report from mygola and had the opportunity to ask questions and assume patient care.
[2022-10-20 06:52] LABS: ALANINE AMINOTRANSFERASE 24 U/L (12-78); ALBUMIN 2.3 G/DL (3.4-5.0); ALBUMIN/GLOBULIN RATIO 0.8 (1.1-1.5); ALKALINE PHOSPHATASE 80 IU/L (46-116); ANION GAP 8 (8-16); ASPARTATE AMINO TRANSFERASE 11 U/L (10-37); BILIRUBIN,TOTAL 0.5 MG/DL (0.1-1.0); BLOOD UREA NITROGEN 14 MG/DL (7-18); BUN/CREATININE RATIO 16.3 (10.0-20.0); CALCIUM 8.5 MG/DL (8.5-10.1); CHLORIDE 106 MMOL/L (99-107); CREATININE 0.86 MG/DL (0.60-1.10); GLUCOSE 184 MG/DL (70-104); MAGNESIUM 1.7 MG/DL (1.5-2.4); POTASSIUM 3.3 MMOL/L (3.5-5.1); SODIUM 141 MMOL/L (135-145); TOTAL CARBON DIOXIDE 26.8 MMOL/L (24-32); TOTAL PROTEIN 5.3 G/DL (6.4-8.2); eGFR 87 ML/MIN
[2022-10-20 07:18] LABS: HEMOGLOBIN A1C 5.4 % (4.5-6.2)
[2022-10-20] MEDS: K and/or MAG REPLACEMENT MC SCH ×2 (08:00→19:30)
[2022-10-20] MEDS: enoxaparin 40mg/0.4ml syringe SUBCUT SCH (08:00)
--- NOTE | 2022-10-20 08:45 | NUR ---
DM consult: Per EMR pt with T2DM, well controlled with A1c 5.4% which is down from 6.4% 06/27/22. DM education and CHO controlled diet restriction not warranted. Pt admit for acute encephalopathy and acute PNA, currently A/O x 2 per EMR. Pt NPO, ST has been consulted for BSS. Will continue to follow and make recommendations as appropriate. Addendum: 10/20/22 at [address] Amended: Links added.
[2022-10-20] MEDS: docusate sod 100mg capsule PO SCH ×2 (09:18→20:00)
[2022-10-20] MEDS: potassium Cl 20 mEq SR tablet PO PRN ×3 (09:32→21:22)
[2022-10-20] MEDS: insulin Lispro (HumaLOG) vial - multi-dose SQ SCH ×3 (09:56→19:46)
[2022-10-20 10:00] VITALS: BP 119/67
--- NOTE | 2022-10-20 11:39 | NUR ---
notified pt refusing scheduled neb treatment, notified MD per pt takes neb treatments prn rarely at home. Addendum: 10/20/22 at 1141 by Mendy Villanueva RT Amended: Links added.
[2022-10-20] MEDS ORDERED: benzonatate 100mg capsule PO PRN (12:15)
[2022-10-20] MEDS ORDERED: acetaminophen 325mg tablet PO PRN (17:35)
[2022-10-20 18:00] VITALS: BP 139/70
--- NOTE | 2022-10-20 18:25 | NUR ---
Problems reprioritized. Patient report given, questions answered & plan of care reviewed with Karen Phan
[2022-10-20] MEDS: quetiapine 100mg tablet PO SCH (20:23)
[2022-10-20] MEDS: oxyCODONE IR 5mg (immed. release) tablet PO PRN (20:23)
[2022-10-20] MEDS: ROPINIRole 1mg tablet PO SCH (20:24)
[2022-10-20] MEDS ORDERED: benzonatate 100mg capsule PO ONE (20:25)
[2022-10-20] MEDS: insulin glargine (Lantus) pen - multi-dose SQ SCH (21:27)
[2022-10-20 22:00] VITALS: BP 127/71
[2022-10-21] MEDS: methylPREDNISolone sod succ/PF 40mg inj. IV SCH ×3 (00:04→16:17)
[2022-10-21] MEDS: piperacillin/tazo 3.375gm/50ml 50 ML IV SCH ×3 (00:04→16:18)
[2022-10-21] MEDS: ipratropium/albuterol 3ml nebule NEB SCH ×4 (02:54→21:00)
[2022-10-21] MEDS: oxyCODONE IR 5mg (immed. release) tablet PO PRN ×3 (04:16→21:26)
[2022-10-21] MEDS: normal saline 1000ml 1,000 ML IV SCH (04:58)
[2022-10-21 06:00] VITALS: BP 139/78
--- NOTE | 2022-10-21 06:17 | NUR ---
Problems reprioritized. Patient report given, questions answered & plan of care reviewed with ALCON Ching.
[2022-10-21] MEDS: enoxaparin 40mg/0.4ml syringe SUBCUT SCH (08:00)
[2022-10-21] MEDS: K and/or MAG REPLACEMENT MC SCH ×2 (08:00→20:07)
[2022-10-21] MEDS: docusate sod 100mg capsule PO SCH ×2 (08:29→20:10)
[2022-10-21] MEDS: insulin Lispro (HumaLOG) vial - multi-dose SQ SCH ×3 (08:31→19:03)
--- NOTE | 2022-10-21 08:34 | NUR ---
pt. refused 0900 SVN. BS clear and without SOB on rom air
[2022-10-21 10:00] VITALS: BP 121/71
[2022-10-21 11:10] LABS: BASOPHILS % (AUTO) 0.1 % (0-1); EOSINOPHILS % (AUTO) 0 % (0-6); HEMATOCRIT 36.3 % (42.0-52.0); HEMOGLOBIN 12.1 g/dl (14.0-17.9); LYMPHOCYTES # (AUTO) 0.2 X10'3 (1.1-4.8); LYMPHOCYTES % (AUTO) 3.1 % (21-51); MEAN CORPUSCULAR HEMOGLOBIN 30.3 PG (27.0-31.0); MEAN CORPUSCULAR HGB CONC 33.4 g/dL (33.0-36.5); MEAN CORPUSCULAR VOLUME 90.6 FL (78-98); MEAN PLATELET VOLUME 8.5 FL (7.4-10.4); MONOCYTES # (AUTO) 0.4 X10'3 (0-0.9); MONOCYTES % (AUTO) 5.7 % (2-12); NEUTROPHILS # (AUTO) 6.1 X10'3 (1.8-7.7); NEUTROPHILS % (AUTO) 91.1 % (42-75); PLATELET COUNT 106 X10'3 (140-440); RED BLOOD COUNT 4.01 X10'6 (4.70-6.10); RED CELL DISTRIBUTION WIDTH 18.4 % (11.5-14.5); WHITE BLOOD COUNT 6.7 X10'3 (4.5-11.0)
[2022-10-21] MEDS ORDERED: METO-411 PO (11:22)
[2022-10-21] MEDS ORDERED: POLY510P31 PO (11:22)
[2022-10-21] MEDS ORDERED: CLON0.5T4 PO (11:22)
[2022-10-21] MEDS ORDERED: ISOS60TA71 PO (11:22)
[2022-10-21] MEDS ORDERED: PREG200C28 PO (11:22)
[2022-10-21] MEDS ORDERED: ALBU17AE26 PO (11:22)
[2022-10-21] MEDS ORDERED: METF-1203 PO (11:22)
[2022-10-21] MEDS ORDERED: ATRNS BOTHNARES (11:22)
[2022-10-21 11:28] LABS: ALANINE AMINOTRANSFERASE 32 U/L (12-78); ALBUMIN 2.4 G/DL (3.4-5.0); ALBUMIN/GLOBULIN RATIO 0.8 (1.1-1.5); ALKALINE PHOSPHATASE 92 IU/L (46-116); ANION GAP 14 (8-16); ASPARTATE AMINO TRANSFERASE 16 U/L (10-37); BILIRUBIN,TOTAL 0.4 MG/DL (0.1-1.0); BLOOD UREA NITROGEN 18 MG/DL (7-18); BUN/CREATININE RATIO 17.5 (10.0-20.0); CALCIUM 8.7 MG/DL (8.5-10.1); CHLORIDE 100 MMOL/L (99-107); CREATININE 1.03 MG/DL (0.60-1.10); GLUCOSE 280 MG/DL (70-104); MAGNESIUM 1.7 MG/DL (1.5-2.4); PHOSPHORUS 3.1 MG/DL (2.3-4.5); POTASSIUM 3.3 MMOL/L (3.5-5.1); SODIUM 138 MMOL/L (135-145); TOTAL CARBON DIOXIDE 24.1 MMOL/L (24-32); TOTAL PROTEIN 5.6 G/DL (6.4-8.2); eGFR 71 ML/MIN
[2022-10-21] MEDS: potassium Cl 20 mEq SR tablet PO PRN ×3 (12:19→21:26)
[2022-10-21] MEDS ORDERED: ondansetron 4mg rapidly disintigrating tab PO PRN (14:50)
[2022-10-21] MEDS: mag hydrox/Alum hydrox/simeth 30ml oral suspension PO PRN ×2 (15:02→21:39)
[2022-10-21] MEDS: benzonatate 100mg capsule PO PRN (17:08)
[2022-10-21 18:00] VITALS: BP 126/77
--- NOTE | 2022-10-21 18:26 | NUR ---
Report given to Karen RONDON, patient eating dinner in bed at this time.
[2022-10-21] MEDS: quetiapine 100mg tablet PO SCH (20:10)
[2022-10-21] MEDS: ROPINIRole 1mg tablet PO SCH (20:10)
[2022-10-21] MEDS: atorvastatin 20mg tablet PO SCH (21:26)
[2022-10-21] MEDS: insulin glargine (Lantus) pen - multi-dose SQ SCH (21:34)
[2022-10-21 22:00] VITALS: BP 117/67
[2022-10-22] MEDS: methylPREDNISolone sod succ/PF 40mg inj. IV SCH ×4 (00:05→23:42)
[2022-10-22] MEDS: piperacillin/tazo 3.375gm/50ml 50 ML IV SCH ×4 (00:05→23:42)
[2022-10-22] MEDS: ipratropium/albuterol 3ml nebule NEB SCH ×4 (02:32→20:27)
[2022-10-22] MEDS: oxyCODONE IR 5mg (immed. release) tablet PO PRN ×3 (05:21→21:43)
[2022-10-22] MEDS: benzonatate 100mg capsule PO PRN ×3 (05:22→21:43)
[2022-10-22 06:25] LABS: ALANINE AMINOTRANSFERASE 32 U/L (12-78); ALBUMIN 2.6 G/DL (3.4-5.0); ALBUMIN/GLOBULIN RATIO 0.7 (1.1-1.5); ALKALINE PHOSPHATASE 89 IU/L (46-116); ANION GAP 8 (8-16); ASPARTATE AMINO TRANSFERASE 15 U/L (10-37); BILIRUBIN,TOTAL 0.5 MG/DL (0.1-1.0); BLOOD UREA NITROGEN 19 MG/DL (7-18); BUN/CREATININE RATIO 22.6 (10.0-20.0); CALCIUM 8.6 MG/DL (8.5-10.1); CHLORIDE 100 MMOL/L (99-107); CREATININE 0.84 MG/DL (0.60-1.10); GLUCOSE 192 MG/DL (70-104); MAGNESIUM 2.1 MG/DL (1.5-2.4); PHOSPHORUS 3.9 MG/DL (2.3-4.5); POTASSIUM 4.2 MMOL/L (3.5-5.1); SODIUM 137 MMOL/L (135-145); TOTAL CARBON DIOXIDE 28.8 MMOL/L (24-32); TOTAL PROTEIN 6.1 G/DL (6.4-8.2); eGFR 90 ML/MIN
--- NOTE | 2022-10-22 06:26 | NUR ---
Problems reprioritized. Patient report given, questions answered & plan of care reviewed with ALCON Richards and ALCON Jade.
[2022-10-22 06:29] LABS: BASOPHILS % (AUTO) 0.1 % (0-1); EOSINOPHILS % (AUTO) 0.1 % (0-6); HEMATOCRIT 40.9 % (42.0-52.0); HEMOGLOBIN 13.4 g/dl (14.0-17.9); LYMPHOCYTES # (AUTO) 0.3 X10'3 (1.1-4.8); LYMPHOCYTES % (AUTO) 7.3 % (21-51); MEAN CORPUSCULAR HEMOGLOBIN 29.3 PG (27.0-31.0); MEAN CORPUSCULAR HGB CONC 32.9 g/dL (33.0-36.5); MEAN PLATELET VOLUME 8.4 FL (7.4-10.4); MONOCYTES # (AUTO) 0.3 X10'3 (0-0.9); MONOCYTES % (AUTO) 7.4 % (2-12); NEUTROPHILS # (AUTO) 3.9 X10'3 (1.8-7.7); NEUTROPHILS % (AUTO) 85.1 % (42-75); PLATELET COUNT 102 X10'3 (140-440); RED BLOOD COUNT 4.59 X10'6 (4.70-6.10); RED CELL DISTRIBUTION WIDTH 18.4 % (11.5-14.5); WHITE BLOOD COUNT 4.5 X10'3 (4.5-11.0)
--- NOTE | 2022-10-22 06:45 | NUR ---
Patient in room ORTHO 4018. I have received report from MISAEL RONDON and had the opportunity to ask questions and assume patient care. Addendum: 10/22/22 at 0648 by Yasmany Concepcion RN BISHOP DOUGLAS RN, RECEIVED REPORT FROM PRINCESS RONDON
[2022-10-22 07:05] VITALS: BP 110/66
[2022-10-22] MEDS: enoxaparin 40mg/0.4ml syringe SUBCUT SCH (07:45)
[2022-10-22] MEDS: atorvastatin 20mg tablet PO SCH (07:46)
[2022-10-22] MEDS: docusate sod 100mg capsule PO SCH ×2 (07:46→19:25)
[2022-10-22] MEDS: K and/or MAG REPLACEMENT MC SCH ×2 (08:00→20:00)
[2022-10-22] MEDS: insulin Lispro (HumaLOG) vial - multi-dose SQ SCH ×3 (09:26→19:22)
[2022-10-22 10:51] VITALS: BP 100/59
--- NOTE | 2022-10-22 16:12 | NUR ---
PRESSURE ULCER EDUCATION: DEFINITION: A pressure ulcer is an area of skin that breaks down when you stay in one position too long. The constant pressure against the skin reduces the blood flow to that area and the affected tissue dies. CAUSES: "Being bedridden or in a wheelchair "Fragile skin "Having a chronic condition, such as diabetes or vascular disease "Inability to move certain parts of your body without assistance "Older age "Incontinence of urine or stool SYMPTOMS: "A reddened area that DOES NOT turn white when pressed on - this can be the beginning of a pressure ulcer "A blister, deep sore or a crater - these can be advanced pressure ulcers FIRST AID: "Relieve the pressure on this area "Keep the area clean and dry "Call your primary doctor if you see any of the above symptoms "DO NOT massage the area "DO NOT use a donut shaped or ring shaped pillow- these actually interfere with the blood flow and cause complications PREVENTION: "Check for pressure ulcers everyday "Change position at least every two hours to relieve pressure "Use items that help relieve pressure- pillows, sheepskin, foam padding, and powders. "Keep skin clean and dry "Eat healthy well balanced meals "Exercise daily IF YOU SEE ANY OF THESE SYMPTOMS WHILE IN THE HOSPITAL - TELL YOUR NURSE IMMEDIATELY. IF YOU SEE ANY OF THESE SYMPTOMS WHILE AT HOME OR HAVE ANY QUESTIONS OR CONCERNS ABOUT PRESSURE ULCERS - CALL YOUR PRIMARY DOCTOR IMMEDIATELY. Addendum: 10/22/22 at 1612 by Slick Truong RN Amended: Links added.
[2022-10-22 18:00] VITALS: BP 105/63
--- NOTE | 2022-10-22 18:26 | NUR ---
Problems reprioritized. Patient report given TO MISAEL RONDON, questions answered & plan of care reviewed with .
--- NOTE | 2022-10-22 18:29 | NUR ---
[place] documentation: I have reviewed all interventions, assessments performed and documented by Emiliano RONDON. [place] Medication Administration: For this medication-pass time frame, all medication were reviewed, dispensed, administered and documented per hospital policy by Emiliano RONDON.
[2022-10-22 19:15] VITALS: BP 105/63
[2022-10-22] MEDS ORDERED: Melatonin 3mg tablet PO SCH (21:00)
[2022-10-22] MEDS: quetiapine 100mg tablet PO SCH (21:17)
[2022-10-22] MEDS: ROPINIRole 1mg tablet PO SCH (21:17)
[2022-10-22] MEDS: insulin glargine (Lantus) pen - multi-dose SQ SCH (21:32)
[2022-10-23] MEDS: ipratropium/albuterol 3ml nebule NEB SCH ×2 (03:00→09:00)
[2022-10-23 06:00] VITALS: BP 93/54
--- NOTE | 2022-10-23 06:15 | NUR ---
RECEIVED REPORT FROM ALCON DOUGLAS
--- NOTE | 2022-10-23 06:24 | NUR ---
Problems reprioritized. Patient report given, questions answered & plan of care reviewed with SKIP. Addendum: 10/23/22 at 0624 by Emerson Perla RN Amended: Links added.
[2022-10-23 06:50] LABS: BASOPHILS % (AUTO) 0.3 % (0-1); EOSINOPHILS % (AUTO) 0 % (0-6); HEMATOCRIT 41.6 % (42.0-52.0); HEMOGLOBIN 13.4 g/dl (14.0-17.9); LYMPHOCYTES # (AUTO) 0.5 X10'3 (1.1-4.8); LYMPHOCYTES % (AUTO) 7.2 % (21-51); MEAN CORPUSCULAR HEMOGLOBIN 29.1 PG (27.0-31.0); MEAN CORPUSCULAR HGB CONC 32.3 g/dL (33.0-36.5); MEAN CORPUSCULAR VOLUME 90.1 FL (78-98); MEAN PLATELET VOLUME 8.3 FL (7.4-10.4); MONOCYTES # (AUTO) 0.4 X10'3 (0-0.9); MONOCYTES % (AUTO) 6.4 % (2-12); NEUTROPHILS # (AUTO) 5.9 X10'3 (1.8-7.7); NEUTROPHILS % (AUTO) 86.1 % (42-75); PLATELET COUNT 102 X10'3 (140-440); RED BLOOD COUNT 4.61 X10'6 (4.70-6.10); RED CELL DISTRIBUTION WIDTH 19.3 % (11.5-14.5); WHITE BLOOD COUNT 6.9 X10'3 (4.5-11.0)
[2022-10-23 07:19] LABS: ALANINE AMINOTRANSFERASE 29 U/L (12-78); ALBUMIN 2.6 G/DL (3.4-5.0); ALBUMIN/GLOBULIN RATIO 0.8 (1.1-1.5); ALKALINE PHOSPHATASE 88 IU/L (46-116); ANION GAP 10 (8-16); ASPARTATE AMINO TRANSFERASE 14 U/L (10-37); BILIRUBIN,TOTAL 0.4 MG/DL (0.1-1.0); BLOOD UREA NITROGEN 30 MG/DL (7-18); BUN/CREATININE RATIO 26.8 (10.0-20.0); CALCIUM 8.8 MG/DL (8.5-10.1); CHLORIDE 101 MMOL/L (99-107); CREATININE 1.12 MG/DL (0.60-1.10); GLUCOSE 191 MG/DL (70-104); MAGNESIUM 2.3 MG/DL (1.5-2.4); PHOSPHORUS 5.4 MG/DL (2.3-4.5); POTASSIUM 4.3 MMOL/L (3.5-5.1); SODIUM 138 MMOL/L (135-145); TOTAL PROTEIN 5.9 G/DL (6.4-8.2); eGFR 64 ML/MIN
[2022-10-23] MEDS: docusate sod 100mg capsule PO SCH (07:59)
[2022-10-23] MEDS: K and/or MAG REPLACEMENT MC SCH (08:00)
[2022-10-23] MEDS: atorvastatin 20mg tablet PO SCH (08:02)
[2022-10-23] MEDS: piperacillin/tazo 3.375gm/50ml 50 ML IV SCH (08:04)
[2022-10-23] MEDS: enoxaparin 40mg/0.4ml syringe SUBCUT SCH (08:08)
[2022-10-23] MEDS: methylPREDNISolone sod succ/PF 40mg inj. IV SCH (08:14)
[2022-10-23] MEDS: insulin Lispro (HumaLOG) vial - multi-dose SQ SCH ×2 (08:25→13:19)
--- NOTE | 2022-10-23 09:17 | NUR ---
0900 svn REFUSED BY PT. bs CLEAR. spo2 96% ON ROOM AIR
[2022-10-23 10:00] VITALS: BP 96/57
[2022-10-23] MEDS: oxyCODONE IR 5mg (immed. release) tablet PO PRN (10:12)
[2022-10-23] MEDS ORDERED: guaiFENesin 200 MG/10 ML oral syrup UD cup PO PRN (10:15)
[2022-10-23] MEDS ORDERED: LACT1CAP74 PO (13:02)
[2022-10-23] MEDS ORDERED: CEFD300C3 PO (13:02)
--- NOTE | 2022-10-23 14:40 | NUR ---
pt d/c with instructions, understanding of instructions and with all belonging including prothesis, in wheelchair accompanied by ihss worker to private vehicle to go home and f/u w/pcp
== END 2022-10-23 14:42 | disposition home health service (06) | DRG 871 ==
LOC: ER 12:49 → ED HOLD 18:00 → EDBEDREQ 21:43 → ORTHO 4S 23:05
PROVIDERS: ADMIT Family Medicine; ATTEND Family Medicine
PROC: B4201ZZ Computerized Tomography (CT Scan) of Abdominal Aorta using Low Osmolar Contrast (ICD-10-PCS; principal; 2022-10-19)
DX: A41.9 Sepsis, unspecified organism (principal); G92.8 Other toxic encephalopathy; J69.0 Pneumonitis due to inhalation of food and vomit; J96.01 Acute respiratory failure with hypoxia; C34.90 Malignant neoplasm of unspecified part of unspecified bronchus or lung; J44.0 Chronic obstructive pulmonary disease with (acute) lower respiratory infection; J44.1 Chronic obstructive pulmonary disease with (acute) exacerbation; T40.2X1A Poisoning by other opioids, accidental (unintentional), initial encounter; E11.9 Type 2 diabetes mellitus without complications; F10.129 Alcohol abuse with intoxication, unspecified; Y90.9 Presence of alcohol in blood, level not specified; I50.9 Heart failure, unspecified; E78.5 Hyperlipidemia, unspecified; G89.3 Neoplasm related pain (acute) (chronic); I11.0 Hypertensive heart disease with heart failure; Z85.118 Personal history of other malignant neoplasm of bronchus and lung; Z89.511 Acquired absence of right leg below knee; Z90.49 Acquired absence of other specified parts of digestive tract; Z82.49 Family history of ischemic heart disease and other diseases of the circulatory system; Y92.89 Other specified places as the place of occurrence of the external cause
CPT/HCPCS: 36415; 70450; 71045; 71275; 80053; 80305; 81001; 82948; 83036; 83605; 83735; 84100; 84145; 85008; 85025; 87040; 87077; 87081; 87088; 87186; 92508; 92616; 94640; 94760; 97116; 97161; 97530; 99285; A6196; A6212; A6213; A6222; A6446; A6449; C1758; G0378; J1650; J1815; J2310; J2543; J2920; J2930; J3490; J7030; Q9967